=== PATIENT | male | born 1990 | race Two or more races ===

== ENCOUNTER → 2019-02-19 | Outpatient (CLI) | payer BC ==
[2019-02-19 09:01] LABS: Urine Blood Negative /uL (Negative); Urine Specific Gravity 1.024 (1.001-1.035)
[2019-02-19 09:05] LABS: Basophils # (auto) 0 uL; Basophils % (auto) 0.7 % (0.0-2.0); Eosinophils # (auto) 0.1 uL; Eosinophils % (auto) 1.8 % (0.0-7.0); Hematocrit 47.2 % (41.0-53.0); Hemoglobin 16.4 g/dL (13.5-17.5); Lymphocytes # (auto) 2.5 uL; Lymphocytes % (auto) 33.3 % (10.0-50.0); Mean Corpuscular Hemoglobin 30.9 pg (28.0-32.0); Mean Corpuscular Hgb Conc. 34.8 g/dL (32.0-36.0); Mean Corpuscular Volume 88.8 fL (80.0-100.0); Monocytes # (auto) 0.5 uL; Monocytes % (auto) 7.1 % (0.0-12.0); Neutrophils # (auto) 4.3 uL; Neutrophils % (auto) 57.1 % (37.0-80.0); Nucleated Red Blood Cells % 0.1 %; Platelet Count (auto) 242 10^3/uL (140-450); Red Blood Cells 5.31 10^6/uL (4.5-5.90); Red Cell Distribution Width 12.6 % (11.8-14.3); White Blood Cell 7.5 10^3/uL (4.4-10.8)
[2019-02-19 09:31] LABS: Chloride 106 mmol/L (98-107); Potassium 3.8 mmol/L (3.5-5.1); Sodium 140 mmol/L (136-145)
[2019-02-19 09:40] LABS: Alanine Aminotransferase 40 U/L (16-61); Albumin 4.3 g/dL (3.4-5.0); Alkaline Phosphatase 134 U/L (45-117); Anion Gap 8 (5-15); Aspartate Aminotransferase 20 U/L (15-37); BUN/Creatinine Ratio 10.7; Bilirubin, Total 0.6 mg/dL (0.2-1.0); Blood Urea Nitrogen 12 mg/dL (7-18); Calcium 9.3 mg/dL (8.5-10.1); Carbon Dioxide 26 mmol/L (21-32); Cholesterol 223 mg/dL (< 200); GFR African American 99 mL/min; GFR Non-African American 82 mL/min; Glucose 97 mg/dL (74-106); HDL Cholesterol 54 mg/dL (40-59); LDL Cholesterol 134 mg/dL (< 100); Total Protein 7.9 g/dL (6.4-8.2); Triglycerides 185 mg/dL (< 150)
== END | disposition home or self-care (01) ==
LOC: LAB 08:37
PROVIDERS: ATTEND Family Medicine
DX: E66.09 Other obesity due to excess calories (principal); Z83.3 Family history of diabetes mellitus
CPT/HCPCS: 36415; 80053; 80061; 81003; 83036; 85025

== ENCOUNTER → 2022-08-09 | Outpatient (CLI) | payer BC ==
[2022-08-09 11:32] LABS: Basophils # (auto) 0.1 10 ^3/uL (0-0.2); Basophils % (auto) 0.6 % (0.0-2.0); Eosinophils # (auto) 0.2 10 ^3/uL (0-0.8); Eosinophils % (auto) 1.8 % (0.0-7.0); Hematocrit 43.8 % (41.0-53.0); Hemoglobin 15.4 g/dL (13.5-17.5); Lymphocytes # (auto) 2.8 10 ^3/uL (0.4-5.4); Lymphocytes % (auto) 31.1 % (10.0-50.0); Mean Corpuscular Hgb Conc. 35.1 g/dL (32.0-36.0); Mean Corpuscular Volume 88.4 fL (80.0-100.0); Monocytes # (auto) 0.5 10 ^3/uL (0-1.3); Monocytes % (auto) 5.9 % (0.0-12.0); Neutrophils # (auto) 5.4 10 ^3/uL (1.6-8.6); Neutrophils % (auto) 60.6 % (37.0-80.0); Nucleated Red Blood Cells % 0.1 %; Red Blood Cells 4.96 10^6/uL (4.5-5.90); White Blood Cell 8.9 10^3/uL (4.4-10.8)
[2022-08-09 12:23] LABS: Albumin 4.2 g/dL (3.4-5.0); BUN/Creatinine Ratio 15.4; Calcium 9.4 mg/dL (8.5-10.1)
[2022-08-09 12:29] LABS: Bilirubin, Total 0.4 mg/dL (0.2-1.0); Total Protein 7.6 g/dL (6.4-8.2)
== END | disposition home or self-care (01) ==
LOC: LAB 10:54
PROVIDERS: ATTEND Student in an Organized Health Care Education/Training Program
DX: E78.49 Other hyperlipidemia (principal); E66.9 Obesity, unspecified
CPT/HCPCS: 36415; 80053; 80061; 85025

== ENCOUNTER 2022-08-21 10:38 | Emergency (ER) | payer BC ==
[~2022-08-21] VITALS: Ht 180.3 cm; Wt 106.5 kg
[2022-08-21 11:14] LABS: Basophils # (auto) 0 10 ^3/uL (0-0.2); Basophils % (auto) 0.6 % (0.0-2.0); Eosinophils # (auto) 0.1 10 ^3/uL (0-0.8); Eosinophils % (auto) 1.8 % (0.0-7.0); Hematocrit 46.6 % (41.0-53.0); Hemoglobin 16.1 g/dL (13.5-17.5); Lymphocytes # (auto) 2.3 10 ^3/uL (0.4-5.4); Lymphocytes % (auto) 31.4 % (10.0-50.0); Mean Corpuscular Hemoglobin 30.4 pg (28.0-32.0); Mean Corpuscular Hgb Conc. 34.5 g/dL (32.0-36.0); Monocytes # (auto) 0.5 10 ^3/uL (0-1.3); Monocytes % (auto) 7.1 % (0.0-12.0); Neutrophils # (auto) 4.4 10 ^3/uL (1.6-8.6); Neutrophils % (auto) 59.1 % (37.0-80.0); Nucleated Red Blood Cells % 0.1 %; Red Blood Cells 5.29 10^6/uL (4.5-5.90); Red Cell Distribution Width 12.6 % (11.8-14.3); White Blood Cell 7.4 10^3/uL (4.4-10.8)
[2022-08-21 12:04] LABS: Albumin 4.2 g/dL (3.4-5.0); BUN/Creatinine Ratio 16.3; Calcium 9.2 mg/dL (8.5-10.1); Potassium 3.8 mmol/L (3.5-5.1)
[2022-08-21 12:07] LABS: Bilirubin, Total 0.6 mg/dL (0.2-1.0); Total Protein 7.4 g/dL (6.4-8.2)
[2022-08-21] MEDS ORDERED: TIZA4TAB9 PO ×2 (13:01→13:02)
[2022-08-21] MEDS ORDERED: PRED10TA PO ×2 (13:01→13:02)
[2022-08-21 13:22] VITALS: BP 125/71
== END 2022-08-21 13:24 | disposition home or self-care (01) ==
LOC: ER 10:38
DX: R07.89 Other chest pain (principal); M54.12 Radiculopathy, cervical region
CPT/HCPCS: 36415; 71045; 72125; 80053; 84484; 85025; 93005

== ENCOUNTER 2025-04-15 07:29 | Outpatient (CLI) | payer BC ==
[~2025-04-15 07:29] MED LIST: PRED10TA PO; TIZA4TAB9 PO
[2025-04-15 08:14] LABS: Hematocrit 46.1 % (41.0-53.0); Hemoglobin 16.0 g/dL (13.5-17.5); Mean Corpuscular Hemoglobin 30.4 pg (28.0-32.0); Mean Corpuscular Volume 87.5 fL (80.0-100.0); Nucleated Red Blood Cells % 0.1 %; Urine Protein, UAD Negative (Negative)
[2025-04-15 08:33] LABS: Alanine Aminotransferase 37 U/L (7-40); Albumin 4.7 g/dL (3.2-4.8); BUN/Creatinine Ratio 9.1 (10.0-20.0); Blood Urea Nitrogen 10 mg/dL (9-23); Calcium 9.8 mg/dL (8.7-10.4); Carbon Dioxide 28 mmol/L (20-31); Glucose 100 mg/dL (74-106); Potassium 4.2 mmol/L (3.5-5.1); Sodium 142 mmol/L (136-145); Total Protein 7.5 g/dL (5.7-8.2)
[2025-04-15 08:34] LABS: Alkaline Phosphatase 137 U/L (46-116); Bilirubin, Total 0.5 mg/dL (0.2-1.0); Cholesterol 201 mg/dL (< 200); HDL Cholesterol 51 mg/dL (40-59); Triglycerides 197 mg/dL (< 150)
[2025-04-15 09:15] LABS: Anion Gap 10 (5-15); Chloride 104 mmol/L (98-107)
== END 2025-04-15 17:00 | disposition home or self-care (01) ==
LOC: LAB 07:29
PROVIDERS: ATTEND Nurse Practitioner
DX: I10 Essential (primary) hypertension (principal); E78.5 Hyperlipidemia, unspecified; R73.9 Hyperglycemia, unspecified; Z79.899 Other long term (current) drug therapy
CPT/HCPCS: 36415; 80053; 80061; 81001; 82306; 82607; 82746; 83036; 84443; 85025